=== PATIENT | female | born 1940 | race Caucasian/White ===

== ENCOUNTER 2020-06-08 12:54 | Outpatient (RCR) | payer MEDICARE ==
[~2020-06-08 12:54] MED LIST: ASPIRIN81 MG PO; CARAFATE1 GM PO; CARVEDILOL3.125 MG PO; CLINDAMYCIN HC300 MG PO; COLACE100 MG PO; FENOFIBRATE160 MG PO; GLUCOTROL XL5 MG PO; LEVAQUIN500 MG PO; METFORMIN HCL1000 MG PO; MOBIC7.5 MG PO; MYRBETRIQ50 MG PO; PANTOPRAZOLE SO20 MG PO; ULTRACET TABLE1 EACH PO; VIT C-BIOFLAVO1 EACH; VITAMIN C500 M1 PO; ZOLPIDEM TARTRA10 MG PO
== END 2020-06-09 ==
LOC: PT 12:54
PROVIDERS: ATTEND Specialist
DX: M47.816 Spondylosis without myelopathy or radiculopathy, lumbar region (principal)

== ENCOUNTER 2020-06-29 12:58 | Outpatient (RCR) | payer MEDICARE | END 2020-07-10 | LOC: PT 12:58 | PROVIDERS: ATTEND Specialist | DX: M47.816 Spondylosis without myelopathy or radiculopathy, lumbar region (principal) | CPT/HCPCS: 97139 ==

== ENCOUNTER → 2022-12-07 | Outpatient (RCR) | payer MEDICARE | LOC: PT 11-16 10:54 | PROVIDERS: ATTEND Specialist | DX: M17.12 Unilateral primary osteoarthritis, left knee (principal); M54.32 Sciatica, left side; S39.012D Strain of muscle, fascia and tendon of lower back, subsequent encounter; M62.81 Muscle weakness (generalized); R26.2 Difficulty in walking, not elsewhere classified; M25.661 Stiffness of right knee, not elsewhere classified ==

== ENCOUNTER 2024-06-10 15:04 | Inpatient (IN) | payer MEDICARE ==
[~2024-06-10] VITALS: Ht 160 cm; Wt 69.9 kg
[2024-06-10 15:45] VITALS: TEMP 99.5
[2024-06-10 16:35] LABS: BASOPHILS % 0.3 % (0.0-1.0); EOSINOPHILS # (AUTO) 0.3 (0.0-0.4); EOSINOPHILS % 2.3 % (0.0-6.0); HEMATOCRIT 42.7 % (34.2-44.1); LYMPHOCYTES # (AUTO) 2.5 (1.0-3.2); MEAN CORPUSCULAR HEMOGLOBIN 29.8 pg (28-32); MEAN CORPUSCULAR HGB CONC 30.4 g/dL (31-35); MEAN CORPUSCULAR VOLUME 97.9 fL (81-99); MONOCYTES # (AUTO) 1.4 (0.2-0.8); MONOCYTES % 11.6 % (4.4-11.3); NEUTROPHILS # (AUTO) 8.1 (2.1-6.9); NEUTROPHILS % 65.2 % (38.7-80.0); PLATELET COUNT 191 x10e3/uL (140-360); RED BLOOD COUNT 4.36 x10e6/uL (3.6-5.1); RED CELL DISTRIBUTION WIDTH 13.9 % (11.7-14.4); WHITE BLOOD COUNT 12.36 x10e3/uL (4.8-10.8)
[2024-06-10] MEDS: SODIUM CHLORIDE 0.9% 1000ML 1,000 ML IV STA ×2 (16:45)
[2024-06-10 16:48] LABS: CORONAVIRUS COVID-19 AG NEGATIVE (NEGATIVE); INFLUENZA A AG NEGATIVE (NEGATIVE); INFLUENZA B AG NEGATIVE (NEGATIVE)
[2024-06-10 16:58] LABS: ALBUMIN 2.9 g/dL (3.5-5.0); ALBUMIN/GLOBULIN RATIO 0.8 (0.8-2.0); ANION GAP 14.1 mmol/L (8-16); BILIRUBIN,TOTAL 0.5 mg/dL (0.2-1.2); CALCIUM 9.3 mg/dL (8.4-10.2); CREATININE, SERUM 0.72 mg/dL (0.57-1.11); POTASSIUM 4.1 mmol/L (3.5-5.1); TOTAL PROTEIN 6.4 g/dL (6.5-8.1)
[2024-06-10 17:22] VITALS: PULSE 72; RESP 20; O2SAT 98
[2024-06-10] MEDS: ALBUTEROL/IPRATROPIUM 3 ML NEB NEB ONE (17:22)
[2024-06-10] MEDS: METHYLPREDNISOLONE SOD SUCC 125 MG/2ML VIAL IV STA (17:26)
[2024-06-10] MEDS: DEXTROSE 50% SYRINGE 50 ML IV ONE (17:49)
[2024-06-10] MEDS ORDERED: DEXTROSE 50% SYRINGE 50 ML IV PRN (18:15)
[2024-06-10] MEDS ORDERED: ONDANSETRON HCL INJ 2MG/ML 2ML 2 MG/ML VIAL IV PRN (18:15)
[2024-06-10] MEDS: DEXTROSE 5%/0.45% SOD CHL 1,000 ML IV SCH (18:47)
[2024-06-10] MEDS: ALBUTEROL/IPRATROPIUM 3 ML NEB NEB SCH (19:00)
[2024-06-10] MEDS: Doxycycline IV 100 MG in SODIUM CHLORIDE 0.9% 100 ML IV SCH (19:57)
[2024-06-10 20:00] VITALS: PULSE 71; RESP 16
[2024-06-10 21:00] VITALS: BP 148/51; PULSE 73; RESP 20; TEMP 97.9; O2SAT 96
[2024-06-10 23:02] VITALS: PULSE 69; RESP 16; O2SAT 92
[2024-06-11] VITALS (15 sets, daily range): BP systolic 128–148; BP diastolic 48–63; PULSE 60–87; RESP 16–20; TEMP 97.7–98.6; O2SAT 94–100
[2024-06-11 00:59] LABS: TROPONIN I 0.01 ng/mL (0-0.300)
[2024-06-11] MEDS ORDERED: TRIAMTERENE-HCTZ1 EA PO (02:32)
[2024-06-11] MEDS ORDERED: METHENAMINE HIPP1 GM PO (02:32)
[2024-06-11] MEDS ORDERED: GABAPENTIN300 MG/6 M (02:32)
[2024-06-11] MEDS ORDERED: LOSARTAN POTASS25 MG PO (02:32)
[2024-06-11] MEDS ORDERED: GLIMEPIRIDE1 MG PO (02:32)
[2024-06-11] MEDS ORDERED: CARVEDILOL3.125 MG PO (02:32)
[2024-06-11] MEDS ORDERED: ATORVASTATIN CA20 MG PO (02:34)
[2024-06-11] MEDS ORDERED: VESICARE5 MG PO (02:34)
[2024-06-11 05:23] LABS: BASOPHILS % 0.1 % (0.0-1.0); HEMATOCRIT 40.3 % (34.2-44.1); HEMOGLOBIN 12.4 g/dL (12.0-16.0); LYMPHOCYTES # (AUTO) 1.3 (1.0-3.2); LYMPHOCYTES % 16.3 % (18.0-39.1); MEAN CORPUSCULAR HEMOGLOBIN 30.2 pg (28-32); MEAN CORPUSCULAR HGB CONC 30.8 g/dL (31-35); MEAN CORPUSCULAR VOLUME 98.1 fL (81-99); MONOCYTES # (AUTO) 0.2 (0.2-0.8); MONOCYTES % 2.9 % (4.4-11.3); NEUTROPHILS # (AUTO) 6.3 (2.1-6.9); NEUTROPHILS % 79.9 % (38.7-80.0); PLATELET COUNT 181 x10e3/uL (140-360); RED BLOOD COUNT 4.11 x10e6/uL (3.6-5.1); RED CELL DISTRIBUTION WIDTH 13.7 % (11.7-14.4); WHITE BLOOD COUNT 7.85 x10e3/uL (4.8-10.8)
[2024-06-11 05:46] LABS: ALBUMIN 2.6 g/dL (3.5-5.0); ALBUMIN/GLOBULIN RATIO 0.8 (0.8-2.0); ANION GAP 14.6 mmol/L (8-16); BILIRUBIN,TOTAL 0.3 mg/dL (0.2-1.2); CALCIUM 8.5 mg/dL (8.4-10.2); CREATININE, SERUM 0.84 mg/dL (0.57-1.11); POTASSIUM 3.6 mmol/L (3.5-5.1); TOTAL PROTEIN 5.9 g/dL (6.5-8.1)
[2024-06-11 05:52] LABS: TROPONIN I 0.001 ng/mL (0-0.300)
[2024-06-11] MEDS ORDERED: DEXTROSE 50% SYRINGE 50 ML IV PRN (09:00)
[2024-06-11] MEDS: GLIMEPIRIDE 2 MG TAB PO ONE (09:28)
[2024-06-11] MEDS: INSULIN REGULAR, HUMAN 100 UNIT/1 ML SQ SCH (11:44)
[2024-06-11] MEDS ORDERED: OS-CAL 500+D T1 EACH PO (12:06)
[2024-06-11] MEDS ORDERED: NEURONTIN300 MG PO (12:06)
[2024-06-11] MEDS ORDERED: VITAMIN D31250 MCG PO (12:06)
[2024-06-11] MEDS ORDERED: VANCOCIN HCL250 MG PO (12:08)
[2024-06-11 12:21] LABS: CREATINE KINASE 145 IU/L (29-168)
[2024-06-11 12:39] LABS: TROPONIN I < 0.001 ng/mL (0-0.300)
[2024-06-11] MEDS: LOSARTAN POTASSIUM 25 MG TAB PO SCH (14:23)
[2024-06-11] MEDS: CARVEDILOL 3.125 MG TAB PO SCH (14:23)
[2024-06-11] MEDS: ASPIRIN 81 MG CHEW TAB PO SCH (14:24)
[2024-06-11] MEDS: GABAPENTIN 300 MG CAP PO SCH (16:35)
[2024-06-11] MEDS: ATORVASTATIN 20 MG TAB PO SCH (21:02)
[2024-06-12] VITALS (7 sets, daily range): BP systolic 86–134; BP diastolic 50–73; PULSE 61–74; RESP 17–22; TEMP 98–98.3; O2SAT 95–98
[2024-06-12] MEDS ORDERED: PREDNISONE10 MG PO (11:21)
[2024-06-12] MEDS ORDERED: TRELEGY ELLIPT1 EACH INH (11:21)
[2024-06-12] MEDS ORDERED: METHENAMINE HIPP1 GM PO (11:21)
[2024-06-12] MEDS ORDERED: ONDANSETRON HCL 4 MG ORAL DISINTEGRATING TAB PO PRN (12:15)
== END 2024-06-12 12:19 | disposition home or self-care (01) | DRG 689 ==
LOC: ER 16:28 → ERHOLD 18:21 → MED/SURG 20:54
PROVIDERS: ADMIT Internal Medicine; ATTEND Internal Medicine
DX: N30.90 Cystitis, unspecified without hematuria (principal); J18.9 Pneumonia, unspecified organism; E11.649 Type 2 diabetes mellitus with hypoglycemia without coma; E11.65 Type 2 diabetes mellitus with hyperglycemia; I10 Essential (primary) hypertension; E78.5 Hyperlipidemia, unspecified; E86.0 Dehydration; T38.3X5A Adverse effect of insulin and oral hypoglycemic [antidiabetic] drugs, initial encounter; R53.81 Other malaise; Z11.52 Encounter for screening for COVID-19; Z79.84 Long term (current) use of oral hypoglycemic drugs; Z79.82 Long term (current) use of aspirin; Z88.2 Allergy status to sulfonamides; Z88.1 Allergy status to other antibiotic agents; Z88.8 Allergy status to other drugs, medicaments and biological substances; F17.200 Nicotine dependence, unspecified, uncomplicated
CPT/HCPCS: 36415; 71045; 80053; 82550; 82948; 83735; 84484; 85025; 87040; 94640; 94799; 99284; J0692; J2919; J7030; J7050; J7799